=== PATIENT | male | born 1990 | race African-American/Black ===

== ENCOUNTER 2019-08-25 10:27 | Emergency (ER) | payer MEDICAID ==
[~2019-08-25] VITALS: Ht 167.6 cm; Wt 59.0 kg
[~2019-08-25 10:27] MED LIST: CARB200T PO; LEVE750T15
[2019-08-25 10:59] LABS: Basophils # (auto) 0.1 uL; Eosinophils # (auto) 0.1 uL; Hematocrit 40.4 % (41.0-53.0); Monocytes # (auto) 0.3 uL; Neutrophils # (auto) 2.8 uL; Nucleated Red Blood Cells % 0.1 %
[2019-08-25 11:01] LABS: Basophils % (auto) 1.3 % (0.0-2.0); Eosinophils % (auto) 1.7 % (0.0-7.0); Hemoglobin 14.1 g/dL (13.5-17.5); Lymphocytes # (auto) 1.5 uL; Lymphocytes % (auto) 31.6 % (10.0-50.0); Mean Corpuscular Hemoglobin 35.5 pg (28.0-32.0); Mean Corpuscular Hgb Conc. 34.8 g/dL (32.0-36.0); Mean Corpuscular Volume 102.1 fL (80.0-100.0); Monocytes % (auto) 6.6 % (0.0-12.0); Neutrophils % (auto) 58.8 % (37.0-80.0); Platelet Count (auto) 142 10^3/uL (140-450); Red Blood Cells 3.96 10^6/uL (4.5-5.90); Red Cell Distribution Width 12.8 % (11.8-14.3); White Blood Cell 4.7 10^3/uL (4.4-10.8)
[2019-08-25 11:16] LABS: BUN/Creatinine Ratio 9.7; Calcium 8.7 mg/dL (8.5-10.1)
[2019-08-25 11:23] LABS: Potassium 3.6 mmol/L (3.5-5.1)
[2019-08-25] MEDS ORDERED: SODIUM CHLORIDE 0.9% 1,000 ML IV ONE (11:23)
[2019-08-25] MEDS ORDERED: LORazepam 2MG/ML-1ML VIAL IV ONE (11:30)
[2019-08-25 12:24] LABS: Albumin 4.2 g/dL (3.4-5.0); Magnesium 1.8 mg/dL (1.6-2.6)
[2019-08-25 12:26] LABS: Bilirubin, Total 0.2 mg/dL (0.2-1.0); Total Protein 7.3 g/dL (6.4-8.2)
[2019-08-25] MEDS ORDERED: CARB400T3 (13:20)
[2019-08-25] MEDS ORDERED: LEVE500T3 (13:20)
[2019-08-25 13:28] VITALS: BP 121/75
== END 2019-08-25 14:32 | disposition left against medical advice (07) ==
LOC: ER 10:27
DX: G40.909 Epilepsy, unspecified, not intractable, without status epilepticus (principal); F12.10 Cannabis abuse, uncomplicated; Z53.29 Procedure and treatment not carried out because of patient's decision for other reasons
CPT/HCPCS: 36415; 80053; 80156; 82542; 83735; 85025; 93005; 96374; 99284; J2060; J7030